=== PATIENT | male | born 1980 | race African-American/Black ===

== ENCOUNTER 2023-08-08 20:51 | Emergency (ER) | payer MEDICAID ==
[~2023-08-08] VITALS: Ht 182.9 cm; Wt 90.0 kg
[2023-08-08 20:55] VITALS: O2SAT 100
[2023-08-08] MEDS: ONDANSETRON HCL 4MG/2ML INJ IV ONE (21:18)
[2023-08-08 21:23] LABS: BASOPHILS % 0.7 % (0.0-2.0); EOSINOPHILS % 0.4 % (0.0-5.0); HEMATOCRIT. 42.6 % (42.0-52.0); HEMOGLOBIN. 14.6 g/dL (14.0-18.0); MEAN CORPUSCULAR HEMOGLOBIN 30.7 pg (28.0-32.0); MEAN CORPUSCULAR HGB CONC 34.3 g/dL (31.0-37.0); MEAN CORPUSCULAR VOLUME 89.6 fL (80.0-94.0); MEAN PLATELET VOLUME 7.6 fl (7.4-10.4); MONOCYTES % 4.2 % (2.0-8.0); NEUTROPHILS % 79.7 % (40.0-76.0); PLATELET 282 x1000/uL (130-400); RED BLOOD CELL COUNT 4.75 mill/uL (4.7-6.1); RED CELL DISTRIBUTION WIDTH 13.4 % (11.6-14.6); WHITE BLOOD COUNT 10.2 x1000/uL (4.5-11.0)
[2023-08-08 21:30] LABS: PROTHROMBIN TIME 11.2 sec (9.6-11.0)
[2023-08-08 21:37] LABS: ALANINE AMINOTRANSFERASE 18 IU/L (10-49); ALBUMIN 4.5 g/dL (3.2-4.8); ASPARTATE AMINOTRANSFERASE 28 IU/L (<34); BILIRUBIN TOTAL 0.7 mg/dL (0.1-1.0); CALCIUM 8.7 mg/dL (8.7-10.4); CARBON DIOXIDE 18 mEq/L (21-32); CHLORIDE 107 mEq/L (98-107); ETHANOL BLOOD 23 mg/dL (<10); GLUCOSE 102 mg/dL (70-105); POTASSIUM 3.5 mEq/L (3.5-5.1); PROTEIN TOTAL 7.4 g/dL (6.0-8.3); SODIUM 139 mEq/L (136-145); UREA NITROGEN BLOOD 12 mg/dL (9-23)
[2023-08-08 21:38] LABS: LACTIC ACID 3.5 mmol/L (0.4-2.0); TROPONIN I HIGH SENSITIVITY < 4 ng/L (3.0-53)
[2023-08-08] MEDS: FAMOTIDINE 20MG/2ML VIAL IV ONE (22:54)
[2023-08-08] MEDS: METOCLOPRAMIDE HCL 10MG/2ML VIAL IV ONE (22:54)
[2023-08-08] MEDS: KETOROLAC 30MG/ML VIAL IV ONE (22:55)
[2023-08-08 23:03] LABS: TROPONIN I HIGH SENSITIVITY < 4 ng/L (3.0-53)
[2023-08-08] MEDS: SODIUM CHLORIDE 0.9% 1,000 ML IV ONE (23:39)
[2023-08-08] MEDS ORDERED: ONDA4TAB11 PO (23:45)
[2023-08-08] MEDS ORDERED: MAG-55 MT (23:45)
[2023-08-08] MEDS ORDERED: FAMO-135 MT (23:45)
[2023-08-09 00:11] VITALS: BP 114/70; PULSE 68; RESP 15; TEMP 98.8
== END 2023-08-09 00:11 | disposition home or self-care (01) ==
LOC: ER 20:51
DX: K29.70 Gastritis, unspecified, without bleeding (principal); F10.20 Alcohol dependence, uncomplicated; Y90.9 Presence of alcohol in blood, level not specified
CPT/HCPCS: 80053; 80320; 83605; 83690; 85025; 85610; 84484; 36415; 71045; 74176; 96361; 96374; 96375; 99284; J3490; J1885; J2765; J2405; J7030; Z7610 ×2; G0480

== ENCOUNTER 2024-05-06 09:10 | Emergency (ER) | payer MEDICAID ==
[~2024-05-06] VITALS: Ht 180.3 cm; Wt 90.7 kg
[~2024-05-06 09:10] MED LIST: FAMO-135 MT; MAG-55 MT; ONDA-239 PO
[2024-05-06 09:56] VITALS: O2SAT 96
[2024-05-06 10:54] LABS: BASOPHILS % 0.4 % (0.0-2.0); EOSINOPHILS % 0.1 % (0.0-5.0); HEMATOCRIT. 42.7 % (42.0-52.0); HEMOGLOBIN. 14.3 g/dL (14.0-18.0); LYMPHOCYTES % 15.6 % (20.0-50.0); MEAN CORPUSCULAR HEMOGLOBIN 29.2 pg (28.0-32.0); MEAN CORPUSCULAR HGB CONC 33.4 g/dL (31.0-37.0); MEAN CORPUSCULAR VOLUME 87.3 fL (80.0-94.0); MEAN PLATELET VOLUME 7.7 fl (7.4-10.4); MONOCYTES % 3.4 % (2.0-8.0); NEUTROPHILS % 80.5 % (40.0-76.0); PLATELET 276 x1000/uL (130-400); RED BLOOD CELL COUNT 4.89 mill/uL (4.7-6.1); RED CELL DISTRIBUTION WIDTH 13.9 % (11.6-14.6); WHITE BLOOD COUNT 5.4 x1000/uL (4.5-11.0)
[2024-05-06 10:58] LABS: CHLORIDE 105 mEq/L (98-107); POTASSIUM 3.5 mEq/L (3.5-5.1); SODIUM 138 mEq/L (136-145)
[2024-05-06 10:59] LABS: CALCIUM 9.7 mg/dL (8.7-10.4); CARBON DIOXIDE 21 mEq/L (21-32)
[2024-05-06 11:04] LABS: GLUCOSE 117 mg/dL (70-105); UREA NITROGEN BLOOD 13 mg/dL (9-23)
[2024-05-06 11:06] LABS: ALANINE AMINOTRANSFERASE 18 IU/L (10-49); ALBUMIN 4.7 g/dL (3.2-4.8); ASPARTATE AMINOTRANSFERASE 25 IU/L (<34); BILIRUBIN DIRECT 0.2 mg/dL (<=3.0); BILIRUBIN TOTAL 0.7 mg/dL (0.1-1.0)
[2024-05-06 11:07] LABS: PROTEIN TOTAL 7.9 g/dL (6.0-8.3)
[2024-05-06 11:27] LABS: CLARITY URINE CLEAR (CLEAR); COLOR URINE YELLOW (YELLOW); GLUCOSE URINE NEGATIVE (NEGATIVE); KETONES URINE 3+ (NEGATIVE); LEUKOCYTE ESTERASE URINE NEGATIVE (NEGATIVE); NITRITE URINE NEGATIVE (NEGATIVE); OCCULT BLOOD URINE TRACE (NEGATIVE); PH URINE 5.5 (4.5-8.0); PROTEIN URINE 1+ (NEGATIVE); UROBILINOGEN URINE 0.2 E.U./dL (0.2-1.0)
[2024-05-06] MEDS: ONDANSETRON 4MG ODT PO ONE (11:29)
[2024-05-06] MEDS: FAMOTIDINE 20MG TABLET PO ONE (11:29)
[2024-05-06 11:43] LABS: BACTERIA URINE 1+; RBC URINE 0-2 /hpf (0-2); SQUAMOUS EPITHELIAL CELL URINE FEW /lpf (RARE/1+); WBC URINE 0-2 /hpf (0-2); YEAST URINE NONE SEEN
[2024-05-06] MEDS ORDERED: ONDA-239 PO (13:18)
[2024-05-06] MEDS ORDERED: FAMO-134 MT (13:18)
[2024-05-06 13:40] VITALS: BP 132/78; PULSE 80; RESP 16; TEMP 36.89184; O2SAT 96
== END 2024-05-06 13:41 | disposition home or self-care (01) ==
LOC: ER 09:28
DX: R10.9 Unspecified abdominal pain (principal); R11.2 Nausea with vomiting, unspecified; R19.7 Diarrhea, unspecified
CPT/HCPCS: 99284; 74176; 80076; 80048; 81003; 83690; 85025; 36415; 93005; Q0162